=== PATIENT | female | born 1970 | race Caucasian/White ===

== ENCOUNTER → 2021-10-05 | Outpatient (CLI) | payer OTHER ==
[~2021-10-05] MED LIST: CATHETER FLUSH 10 ML SYR IV PRN; CETI10TA49 PO; HOLD METFORMIN - RECEIVED CONTRAST 20 ML VIAL IV SCH; IOHEXOL 350 MG/ML 100 ML (OMNIPAQUE 350) VIAL IV ONE; NORE0.357 PO; NS 100 ML (IVPB) BAG IV ONE; OLME1TAB18 PO
--- NOTE | 2021-10-05 18:12 | Diagnostic Imaging Report ---
PROCEDURE: CT abdomen and pelvis with contrast. TECHNIQUE: Multiple contiguous axial images were obtained through the abdomen and pelvis after administration of intravenous contrast. Auto Exposure Controls were utilized during the CT exam to meet ALARA standards for radiation dose reduction. All CT scans use one or more of the following dose optimizing techniques: automated exposure control, MA and/or KvP adjustment based on patient size and exam type or iterative reconstruction. INDICATION: 51-year-old female with abdominal pain with right upper quadrant pain. Pain radiates to the left flank with intermittent pain for two years. There is also intermittent nausea and vomiting. COMPARISONS: None available at the time of dictation. FINDINGS: The lung bases are clear. Cardiac contour is normal. Liver shows uniform attenuation. There is no intraparenchymal mass or ductal dilatation. Gallbladder is surgically absent. Spleen and GE junction show a very small hiatal hernia. Stomach and duodenal sweep are unremarkable. Pancreas shows sharp margins. Adrenals are normal. Kidneys appear normal in size, position and contour with symmetrical perfusion of contrast. There is no evidence of hydronephrosis or hydroureter. Both ureters are seen intermittently through their course and appear unremarkable. Bladder is underfilled. Uterus is normal. There is prominence of the cervix with a large low-density lesion, possibly a nabothian cyst measuring approximately 12 mm. Nonopacified loops of small bowel are normal. Appendix is normal. Large bowel contains fecal material and gas in the ascending segment. The descending segment is mostly decompressed. There is sigmoid diverticulosis but no evidence of acute diverticulitis. There is slight redundancy of the sigmoid colon. There is no free air, free fluid or adenopathy. Visualized vasculature shows normal caliber of the aorta, iliac and femoral arteries with normal origin of the visceral arteries. Bone windows show some mild age-appropriate degenerative changes of the lumbosacral spine with some mild multilevel hypertrophic facet changes. IMPRESSION: 1. Small hiatal hernia. 2. Some mild proximal sigmoid diverticulosis but no evidence of acute diverticulitis. 3. Surgical absence of the gallbladder. There is also no appendicitis. No areas of peritoneal inflammation seen. 4. There is slight prominence of the uterine cervix with a 12 mm cyst, possibly a nabothian cyst. Correlation with pelvic ultrasound would be of further value. Additional nonemergent findings, as described. Dictated by: Dictated on workstation # [id number]
== END ==
LOC: RAD FS 15:45
PROVIDERS: ATTEND Surgery
DX: K44.9 Diaphragmatic hernia without obstruction or gangrene (principal); K57.30 Diverticulosis of large intestine without perforation or abscess without bleeding; Z90.49 Acquired absence of other specified parts of digestive tract
CPT/HCPCS: 74177; Q9967

== ENCOUNTER 2021-10-11 05:49 | Outpatient (CLI) | payer OTHER ==
[~2021-10-11] VITALS: Ht 162.6 cm; Wt 116.1 kg
[~2021-10-11 05:49] MED LIST changes: -CATHETER FLUSH 10 ML SYR IV PRN; -HOLD METFORMIN - RECEIVED CONTRAST 20 ML VIAL IV SCH; -IOHEXOL 350 MG/ML 100 ML (OMNIPAQUE 350) VIAL IV ONE; -NS 100 ML (IVPB) BAG IV ONE
[2021-10-11] MEDS ORDERED: NORE0.3520 PO (09:22)
[2021-10-11] MEDS ORDERED: CITA20TA12 PO (09:22)
== END 2021-10-11 10:22 | disposition home or self-care (01) ==
LOC: PREOP 05:49
PROVIDERS: ATTEND Surgery
DX: Z01.818 Encounter for other preprocedural examination (principal)

== ENCOUNTER 2021-10-18 09:41 | Day surgery (SDC) | payer OTHER ==
[~2021-10-18] VITALS: Ht 162.6 cm; Wt 116.1 kg
[~2021-10-18 09:41] MED LIST changes: +CITA20TA12 PO; +NORE0.3520 PO
[2021-10-18] MEDS ORDERED: LACTATED RINGERS 1,000 ML IV STA (09:51)
[2021-10-18] MEDS ORDERED: LACTATED RINGERS 1,000 ML IV ONE (09:51)
[2021-10-18 10:00] VITALS: BP 127/81
[2021-10-18] MEDS ORDERED: HURRICAINE EXT TUBE (BENZOCAINE) XX PRN (10:00)
[2021-10-18] MEDS ORDERED: LACTATED RINGERS 1,000 ML IV PRN (10:00)
[2021-10-18] MEDS ORDERED: LIDOCAINE JELLY 2% 6 ML SYRINGE MM PRN (10:00)
[2021-10-18] MEDS ORDERED: MIDAZOLAM 2 MG/2 ML (VERSED) VIAL ONE (10:33)
[2021-10-18] MEDS ORDERED: PROPOFOL INJECTION 50 ML IV ONE (10:33)
--- NOTE | 2021-10-18 10:39 | Progress Note-Pre Operative ---
Pre-Operative Progress Note H&P Reviewed The H&P was reviewed, patient examined and no changes noted. Date Seen by Provider: Oct 18, 2021 Time Seen by Provider: 10:00 Date H&P Reviewed: Oct 18, 2021 Time H&P Reviewed: 10:00 Pre-Operative Diagnosis: GERD,screening/family hx ROSEMARIE BENNETT MD Oct 18, 2021 10:39
[2021-10-18] MEDS ORDERED: PANT40TA2 PO (10:40)
--- NOTE | 2021-10-18 10:40 | Discharge Inst-Surgical ---
D/C Lap Instructions-KIDO New, Converted, or Re-Newed RX: RX on Chart Follow Up Activity as tolerated High Fiber Diet 25g or more per day Avoid Alcohol, Caffeine, Spicy [place] and Acid foods. Drink 64 fluid oz or more of fluids per day. Symptoms to Report: Fever over 101 degree F, Nausea/Vomiting If any problems/questions: Contact your physician or go to Emergency Room ROSEMARIE BENNETT MD Oct 18, 2021 10:40
[2021-10-18] MEDS ORDERED: ONDANSETRON 4 MG/2 ML (SDV) Z0FRAN IVP PRN (10:45)
[2021-10-18] MEDS ORDERED: ONDANSETRON 4 MG (ZOFRAN) ORAL DISSOLVE TAB PO PRN (10:45)
[2021-10-18 11:15] VITALS: BP 108/64
[2021-10-18 11:20] VITALS: BP 115/64
--- NOTE | 2021-10-18 11:28 | Progress Note-Post Operative ---
Post-Operative Progess Note Surgeon (s)/Plater Hot Dip (s) Surgeon ROSEMARIE BENNETT MD Plater Hot Dip: none Pre-Operative Diagnosis GERD,screening/family hx Post-Operative Diagnosis reflux esophagitis(grade C), small-mod HH(2.5cm), moderate diffuse gastritis. chronic stage 2 eext and int hemorrhoids. Procedure & Operative Findings Date of Procedure 10/18/21 Procedure Performed/Findings EGD with bx. colonoscopy. Anesthesia Type mac Estimated Blood Loss Estimated blood loss (mL): minimal Specimens/Packing Specimens Removed antrum, ge jxn ROSEMARIE BENNETT MD Oct 18, 2021 11:28
[2021-10-18 11:45] VITALS: BP 107/63
[2021-10-18 11:55] VITALS: BP 107/63
--- NOTE | 2021-10-18 13:54 | Anesthesia-General Post-Op ---
MAC Patient Condition Mental Status/LOC: Same as Preop Cardiovascular: Satisfactory Nausea/Vomiting: Absent Respiratory: Satisfactory Pain: Controlled Complications: Absent Post Op Complications Complications None Follow Up Care/Instructions Patient Instructions None needed. Anesthesiology Discharge Order Discharge Order Patient is doing well, no complaints, stable vital signs, no apparent adverse anesthesia problems. No complications reported per nursing. OSMAN MELGOZA CRNA Oct 18, 2021 13:54
--- NOTE | 2021-10-18 16:42 | OPERATIVE REPORT ---
DATE OF SERVICE: 10/18/2021 ATTENDING OPERATING ROOM SCHEDULER: Debbie Rubio APRN, [place], [place]. PREOPERATIVE DIAGNOSES: Gastroesophageal reflux disease, screening colonoscopy with family history of colon cancer. POSTOPERATIVE DIAGNOSES: Reflux esophagitis, [place] grade C, small to moderate size hiatal hernia approximately 2.5 cm in size, moderate severity gastritis. No distal obstructions. Chronic stage II external and internal hemorrhoids, mild sigmoid diverticulosis. PROCEDURE: EGD with biopsy, colonoscopy. SURGEON: Rosemarie Bennett MD ANESTHESIA: Monitored anesthesia care. ESTIMATED BLOOD LOSS: Minimal. FINDINGS: Reflux esophagitis, [place] grade C, small to moderate size hiatal hernia approximately 2.5 cm in size, moderate severity gastritis. No distal obstructions. Chronic stage II external and internal hemorrhoids, mild sigmoid diverticulosis. DISPOSITION: The patient tolerated the procedure well. INDICATIONS: The patient is a 51-year-old female referred over to us for screening colonoscopy. Last colonoscopy was approximately five years ago and believes this to be normal. She does have a first-degree family history of colon cancer with her father being diagnosed with the disease at around age 50. She does not report any major issues with diarrhea nor constipation as well as no red blood per rectum nor any dark tarry stools. She does also report that she has had issues with gastroesophageal reflux disease as well as epigastric pressure sensation. She states that she has gained approximately 30 pounds in the last year. DESCRIPTION OF PROCEDURE: The patient was brought to the endoscopy suite, laid in left lateral decubitus position. After adequate IV pain and sedative medications and monitored anesthesia care, the mouthpiece was applied. The endoscope was placed in the mouth, visualizing the pharynx and hypopharyngeal region. Vocal cords, epiglottis and vallecula identified and appeared to be normal. The endoscope was then gently intubated at esophageal opening and esophagus insufflated. The endoscope was then advanced through the first, second and third portion of esophagus at the level of the GE junction, a reflux esophagitis, [place] grade C identified. Biopsies were taken with forceps with visualization of good hemostasis. The endoscope was then advanced in the stomach and endoscope retroflexed, visualizing a small to moderate size hiatal hernia approximately 2.5 cm in size. There was also a moderate diffuse gastritis noted. No formal ulcerations, polyps, or any neoplasms. A biopsy was taken of the antrum to rule out H. pylori with visualization of good hemostasis. The endoscope was then advanced to the pylorus and the first and second portion of the duodenum, which appeared normal with no ulcerations or any distal obstructions. The endoscope was then slowly withdrawn while taking a second look and suctioning of residual air with no additional findings. A digital rectal examination was then performed, which revealed chronic stage II external and internal hemorrhoids, not actively edematous nor inflamed and no bleeding. Normal sphincter tone was felt and there were no palpable masses. The endoscope was then intubated into the anus and rectum gently insufflated. The endoscope was then advanced to the valves of [place] of the rectum with no polyps or any neoplasms identified. The endoscope was then advanced through the sigmoid colon where mild sigmoid diverticulosis identified. We then proceeded through the remainder of the descending, transverse and ascending colon to the cecum, which were normal. There were no polyps or any neoplasms identified throughout the colon or rectum. The endoscope was then slowly withdrawn while taking a second look and suctioning of residual air with no additional findings. The patient tolerated the procedure well. Due to her first-degree family history of colon cancer, we will recommend a followup colonoscopy in approximately five years. We will also recommend a high-fiber diet with a fiber supplement, which should equal or exceed 25 to 30 grams daily to promote soft consistency stools on a daily basis. She also does have what appears to be significant reflux as well as gastritis and we will try medical management first which would encompass small and more frequent meals, avoidance of eating at night as well as head elevation while lying supine. Any form of medical weight loss will also be beneficial. We will also start her on Protonix 40 mg daily. If she does maximal medical therapy; however, continues to have symptomatic reflux, she may be a candidate for hiatal hernia repair. However, due to her body mass index, we would recommend a bariatric surgical procedure in conjunction with a hiatal hernia due to the high reoccurrence rate when done above a certain body mass index. Job ID: [id number] DocumentID: [id number] Dictated Date: 10/18/2021 11:21:35 Animal Nutrition Teacher Date: 10/18/2021 16:41:42 Dictated By: ROSEMARIE BENNETT MD
== END 2021-10-18 11:55 | disposition home or self-care (01) ==
LOC: ENDO 09:41
PROVIDERS: ATTEND Surgery
DX: Z12.11 Encounter for screening for malignant neoplasm of colon (principal); K21.00 Gastro-esophageal reflux disease with esophagitis, without bleeding; K44.9 Diaphragmatic hernia without obstruction or gangrene; K29.50 Unspecified chronic gastritis without bleeding; K57.30 Diverticulosis of large intestine without perforation or abscess without bleeding; K64.1 Second degree hemorrhoids; K64.4 Residual hemorrhoidal skin tags; Z80.0 Family history of malignant neoplasm of digestive organs; E66.9 Obesity, unspecified; Z68.41 Body mass index [BMI] 40.0-44.9, adult; Z88.5 Allergy status to narcotic agent
CPT/HCPCS: 84703; 88305

== ENCOUNTER → 2022-04-20 | Outpatient (CLI) | payer OTHER ==
[~2022-04-20] MED LIST changes: +CATHETER FLUSH 10 ML SYR IVP PRN; +OLME-38 PO; -OLME1TAB18 PO; +PANT40TA2 PO; +REGADENOSON 0.4 MG/5 ML SYR (LEXISCAN) IV ONE
[2022-04-20 08:23] VITALS: BP 149/99
== END ==
LOC: CARD 07:15
PROVIDERS: ATTEND Nurse Practitioner Family
DX: R07.89 Other chest pain (principal)
CPT/HCPCS: 78452; 93017; A9502